=== PATIENT | female | born 1945 | race Caucasian/White ===

== ENCOUNTER → 2022-05-29 | Outpatient (REF) | payer MEDICARE | LOC: M LAB REF 16:16 | PROVIDERS: ATTEND Nurse Practitioner Adult Health | DX: D72.9 Disorder of white blood cells, unspecified (principal) ==

== ENCOUNTER → 2022-06-04 | Outpatient (REF) | payer MEDICARE | LOC: M LAB REF 17:31 | PROVIDERS: ATTEND Nurse Practitioner Adult Health | DX: M25.50 Pain in unspecified joint (principal) ==

== ENCOUNTER → 2022-06-21 | Outpatient (REF) | payer MEDICARE | LOC: M LAB REF 11:55 | PROVIDERS: ATTEND Internal Medicine | DX: M25.50 Pain in unspecified joint (principal) ==

== ENCOUNTER → 2022-06-28 | Outpatient (REF) | payer MEDICARE | LOC: M LAB REF 12:00 | PROVIDERS: ATTEND Nurse Practitioner Adult Health | DX: M25.50 Pain in unspecified joint (principal); M35.3 Polymyalgia rheumatica ==

== ENCOUNTER → 2022-07-05 | Outpatient (REF) | payer MEDICARE | LOC: M LAB REF 12:19 | PROVIDERS: ATTEND Nurse Practitioner Adult Health | DX: M35.3 Polymyalgia rheumatica (principal); D72.829 Elevated white blood cell count, unspecified ==

== ENCOUNTER → 2022-07-12 | Outpatient (REF) | payer MEDICARE | LOC: M LAB REF 12:01 | PROVIDERS: ATTEND Nurse Practitioner Adult Health | DX: M35.3 Polymyalgia rheumatica (principal) ==

== ENCOUNTER → 2023-06-25 | Outpatient (REF) | payer MEDICARE | LOC: M LAB REF 11:32 | PROVIDERS: ATTEND Nurse Practitioner Adult Health | DX: M35.3 Polymyalgia rheumatica (principal) ==

== ENCOUNTER → 2023-06-27 | Outpatient (REF) | payer MEDICARE | LOC: M LAB REF 16:09 | PROVIDERS: ATTEND Nurse Practitioner Adult Health | DX: D64.9 Anemia, unspecified (principal); N39.0 Urinary tract infection, site not specified; S32.008A Other fracture of unspecified lumbar vertebra, initial encounter for closed fracture; W18.30XA Fall on same level, unspecified, initial encounter; Y92.009 Unspecified place in unspecified non-institutional (private) residence as the place of occurrence of the external cause ==